=== PATIENT | female | born 1960 | race Caucasian/White ===

== ENCOUNTER 2021-12-26 20:13 | Emergency (ER) | payer OTHER ==
[~2021-12-26 20:13] MED LIST: NORCO 7.5-3251 EACH PO
[2021-12-27] MEDS ORDERED: NORCO 5-325 TA1 EACH PO (02:31)
[2021-12-27] MEDS ORDERED: ONDANSETRON HCL4 MG PO (02:31)
== END 2021-12-27 03:11 | disposition home or self-care (01) ==
LOC: FER 20:13
DX: S62.617A Displaced fracture of proximal phalanx of left little finger, initial encounter for closed fracture (principal); S60.222A Contusion of left hand, initial encounter; W19.XXXA Unspecified fall, initial encounter; Y92.009 Unspecified place in unspecified non-institutional (private) residence as the place of occurrence of the external cause
CPT/HCPCS: 70450; 73200; Q0162